=== PATIENT | female | born 1955 | race Caucasian/White ===

== ENCOUNTER 2024-08-16 22:02 | Inpatient (IN) | payer OTHER ==
[2024-08-16 23:04] LABS: Specific Gravity > 1.030 (1.005-1.030); Sqamous Epithelial <5 /HPF (None Seen); Urine Bacteria None Seen /HPF (<20); Urine Bilirubin 2+ (Negative); Urine Blood Negative (Negative); Urine Clarity Extremely Turbid (Clear); Urine Color Dark-Orange (Yellow); Urine Culture Reflex Order NOT NEEDED; Urine Glucose NEGATIVE (Negative); Urine Ketones 1+ (Negative); Urine Microscopic Reflex YN ORDER UMIC; Urine Mucus 2+ /HPF (None Seen); Urine Nitrite NEGATIVE (Negative); Urine Protein 1+ (Negative); Urine RBC <5 /HPF (None Seen); Urine Urobilinogen 3+ (Normal); Urine WBC <5 /HPF (<5)
[2024-08-16 23:08] LABS: PT Prothrombin Time 15.7 SECONDS (9.4-12.5); Protime INR 1.42
[2024-08-16 23:09] LABS: Absolute Basophils 0.1 K/uL (0-0.5); Absolute Monocytes 0.3 K/uL (0.1-1.3); Absolute Neutrophil 5.3 K/uL (1.8-8.0); Basophils % 0.8 % (0-1.3); Eosinophils % 0.5 % (0-4.4); Hematocrit 28.6 % (36.0-45.0); Hemoglobin 9.9 g/dL (12.0-15.0); Lymphocytes % 14.8 % (15.3-44.8); MCH 35.3 pg (27.0-35.0); MCHC 34.5 g/dL (32.0-36.0); MCV 102.1 fL (80-100); Neutrophils % 79.9 % (41.7-73.7); Nucleated Red Blood Cells % 0.1 % (0-0); Platelets 143 thou/uL (152-406); Red Cell Distribution Width 25.6 % (12.1-15.2)
[2024-08-16] MEDS ORDERED: NA CHLORIDE 0.9% 1,000 ML ONE ×2 (23:13→23:25)
[2024-08-16 23:14] LABS: Barbiturates NEGATIVE (NEGATIVE); Benzodiazepines NEGATIVE (NEGATIVE); Cocaine NEGATIVE (NEGATIVE); METHAMPHETAM NEGATIVE (NEGATIVE); Methadone NEGATIVE (NEGATIVE); Opiates NEGATIVE (NEGATIVE); Phencyclidine NEGATIVE (NEGATIVE); THC Cannibis POSITIVE (NEGATIVE)
[2024-08-16 23:22] LABS: Albumin/Globulin Ratio 0.4 (1.1-1.8); Bilirubin Direct 0.5 mg/dL (0-0.2); Bilirubin Indirect, Calculated 1.6 mg/dL (0.2-0.8); Bilirubin Total 2.1 mg/dL (0.2-1.0); Globulin 4.6 g/dL (2.3-3.5); Protein, Total 6.6 g/dL (6.4-8.2)
[2024-08-16] MEDS ORDERED: THIAMINE 200 MG/2 ML INJ ONE (23:24)
[2024-08-16] MEDS ORDERED: FOLIC ACID 5 MG/ML VIAL ONE (23:25)
[2024-08-16] MEDS ORDERED: MULTIVITAMINS 10 ML VIAL (INJ) IV ONE (23:30)
[2024-08-17] MEDS ORDERED: POTASSIUM 25 MEQ EFFERV TAB ONE (00:03)
[2024-08-17 00:26] LABS: Anisocytosis 2+; Blood Morphology Comment NOTED (NOT SEEN); Platelet Estimate ADEQ; White Blood Cell Scan OK (OK)
[2024-08-17 00:27] LABS: Ovalocytes SLIGHT; Poikilocytosis SLIGHT
--- NOTE | 2024-08-17 01:00 | ER ---
Nurse's Notes [facility] Name: Janae Davis Age: 68 yrs Sex: Female : 1955 Arrival Date: 08/16/2024 Time: 22:02 Bed 16 Private MD: Diagnosis: Altered mental status, unspecified;Hypokalemia Presentation: 08/16 22:00 Chief complaint: EMS states: patient's sister called EMS when they found patient on the kj2 bathroom floor after a welfare check by them. Patient was last seen by family four days ago. Alcohol abuse reported by family. Not sure how long she has been on the floor. Coronavirus screen: At this time, the client does not indicate any symptoms associated with coronavirus-19. Ebola Screen: No symptoms or risks identified at this time. Initial Sepsis Screen: Does the patient meet any 2 criteria? No. Patient's initial sepsis screen is negative. Does the patient have a suspected source of infection? No. Patient's initial sepsis screen is negative. Risk Assessment: Do you want to hurt yourself or someone else? Patient reports no desire to harm self or others. Onset of symptoms is unknown. 22:00 Method Of Arrival: EMS: [facility] 2 22:00 Acuity: VERN 3 kj2 Triage Assessment: 22:00 General: Appears unkempt, Behavior is calm, quiet, Smells of alcohol. Pain: Denies kj2 pain. EENT: No signs and/or symptoms were reported regarding the EENT system. Neuro: Level of Consciousness is awake, alert, Oriented to person, place. Cardiovascular: Patient's skin is warm and dry. Respiratory: Airway is patent Respiratory effort is even, unlabored. GI: No signs and/or symptoms were reported involving the gastrointestinal system. : Urine is cloudy, tea colored. Derm: Wound noted left side of buttocks Wound is skin tear. Historical: - Allergies: 23:03 No Known Allergies; kj2 - Immunization history:: Adult Immunizations unknown. - Infectious Disease History:: Denies. - Social history:: Patient uses alcohol, on a daily basis. Smoking status: Patient reports the use of cigarette tobacco products, smokes one pack cigarettes per day. Screenin:15 [facility] ED Fall Risk Assessment (Adult) History of falling in the last 3 months, kj2 including since admission Yes- single mechanical fall (1 pt) Confusion or Disorientation Yes (5 pts) Intoxicated or Sedated Yes (3 pts) Impaired Gait Yes (1 pt) Mobility Assist Device Used Yes (1 pt) Altered Elimination Yes (1 pt) Score/Fall Risk Level 3 or more points = High Risk Oriented to surroundings, Maintained a safe environment, Educated pt \T\ family on fall prevention, incl call for assistance when getting out of bed, Hourly rounding (assess needs \T\ fall precautionary measures) done, Utilized family, sitter, or virtual rotary lithographic press operator as indicated. Abuse screen: Denies threats or abuse. Denies injuries from another. Nutritional screening: No deficits noted. Tuberculosis screening: No symptoms or risk factors identified. 08/17 02:12 Clinical [place] Withdrawal Assessment for Alcohol, revised (CIWA-Ar): Orientation br2 and Clouding of Sensorium:. Assessment: 08/16 22:00 General: see triage . kj2 23:00 Reassessment: Patient appears in no apparent distress at this time. Patient and/or kj2 family updated on plan of care and expected duration. Pain level reassessed. Patient is alert, oriented x 3, equal unlabored respirations, skin warm/dry/pink. 23:57 Reassessment: PER FAMILY THE LAST TIME PT WENT INTO ALCOHOL WITHDRAWLS SHE BEGAN br2 SEIZING. PT IS STILL AMS. WYATT PAGE NOTIFIED. 08/17 00:00 Reassessment: Patient appears in no apparent distress at this time. Patient and/or kj2 family updated on plan of care and expected duration. Pain level reassessed. Patient is alert, oriented x 3, equal unlabored respirations, skin warm/dry/pink. 00:00 Reassessment: report given to INDU Crowell. kj2 Vital Signs: 08/16 22:00 BP 128 / 76; Pulse 82; Resp 20; Temp 97.5; Pulse Ox 100% on R/A; Weight 99.79 kg; kj2 Height 5 ft. 8 in. ; 22:00 BP 128 / 76; Pulse 82; Resp 18; Temp 97.5; Pulse Ox 100% on R/A; Weight 99.79 kg; kj2 Height 5 ft. 8 in. ; 23:00 BP 121 / 73; Pulse 82; Resp 18; Pulse Ox 100% on R/A; kj2 23:59 BP 135 / 70; Pulse 85; Resp 18; Pulse Ox 100% on R/A; kj2 08/17 01:02 BP 113 / 77; Pulse 83; Resp 18 S; Pulse Ox 100% on R/A; br2 01:30 BP 123 / 71; Pulse 78; Resp 18 S; Pulse Ox 100% on R/A; br2 02:12 BP 115 / 69; Pulse 76; Resp 16 S; Pulse Ox 100% on R/A; br2 08/16 22:00 Body Mass Index 33.45 (99.79 kg, 172.72 cm) kj2 ED Course: 08/16 22:00 Arm band placed on Patient placed in an exam room, on a stretcher. kj2 22:00 Patient has correct armband on for positive identification. Bed in low position. Call kj2 light in reach. Adult w/ patient. Provided Education on: call light, fall precautions. 22:16 Patient arrived in ED. ec2 22:17 Wyatt Sanchez PA is PHCP. cp 22:17 Dom Wheat MD is Attending Physician. cp 22:42 Basic Metabolic Panel Sent. ha1 22:42 CBC with Diff Sent. ha1 22:42 LFT's Sent. ha1 22:42 Magnesium Sent. ha1 22:42 NT PRO-BNP Sent. ha1 22:42 PT-INR Sent. ha1 22:42 Troponin HS Sent. ha1 22:42 AMMONIA Sent. ha1 22:42 Maintain EMS IV. Dressing intact. Good blood return noted. Site clean \T\ dry. Gauge \T\ olmos 1 site: 18 GAUGE LAC. Flushed with 10 mL NS. 22:43 Straight cath inserted, using sterile technique, 14 Fr. Specimen obtained. Patient ha1 tolerated well. 22:53 Katherine Blake, RN is Primary Nurse. kj2 22:59 XRAY Chest (1 view) In Process Unspecified. EDMS 23:01 Triage completed. kj2 23:02 EKG completed in triage. Results shown to . kj2 23:57 Chest Abdomen Pelvis W Cont In Process Unspecified. EDMS 23:57 Head C Spine Mpr Wo Con In Process Unspecified. EDMS 08/17 00:12 Report received from RECEIVED REPORT FROM INDU HUNTER. br2 00:58 Angelo Franz MD is Hospitalizing Provider. cp 01:03 Served as a assurance officer during rectal exam. br2 01:08 Femur Left In Process Unspecified. EDMS 02:30 Patient admitted, IV remains in place. br2 Administered Medications: 08/16 22:42 CANCELLED (Physician Discretion): ns 0.9% 500 ml IV at bolus once cp 23:17 Drug: NS 0.9% IV 1000 ml IV at 999 ml/hr Per protocol Route: IV; Rate: 999 ml/hr; Site: kj left antecubital; 08/17 01:29 Follow up: IV Status: Completed infusion; IV Intake: 1000ml br2 08/16 23:42 Drug: Banana Bag - (Multivitamin IV 1 amp, NS 0.9% IV 1000 ml, Thiamine IV 100 mg, kj2 foLIC Acid IVPB 1 mg) IV at 150 ml/hr once Route: IV; Rate: 150 ml/hr; Site: left antecubital; 08/17 02:30 Follow up: Response: No adverse reaction; IV Status: Infusion continued upon admission br2 00:05 Drug: Potassium PO Effervescent Tablet 50 mEq PO once; dissolve in 4 ounces of water or kj2 juice Route: PO; 01:01 Follow up: Response: No adverse reaction br2 Medication: 08/16 22:30 VIS not applicable for this client. kj2 Intake: 08/17 01:29 IV: 1000ml; Total: 1000ml. br2 Outcome: 01:00 Decision to Hospitalize by Provider. cp 02:30 Condition: improved br2 02:30 Admitted to Med/surg accompanied by tech, br2 02:59 Patient left the ED. br2 Signatures: Dispatcher [employer] EDNJ Wyatt Sanchez PA PA cp Kelin Morin, RN RN ha1 Dom Wheat MD MD ec2 Mervat Flower RN RN br2 Katherine Blake RN RN kj2
--- NOTE | 2024-08-17 01:01 | EDPHYS ---
Physician Documentation [facility] Name: Janae Davis Age: 68 yrs Sex: Female : 1955 Arrival Date: 08/16/2024 Time: 22:02 Bed 16 Private MD: ED Physician Dom Wheat HPI: 08/16 22:40 This 68 yrs old Female presents to ER via Unassigned with complaints of Altered Mental cp Status. 22:40 The patient presents with confusion. Onset: The symptoms/episode began/occurred at an cp unknown time. 22:40 Patient's baseline: Neuro: alert and fully oriented, Motor: no deficits, Ambulation: cp walks without assistance, Speech: normal. Patient is a 68-year-old female who was brought to the emergency department via EMS for reported altered mental status. Patient was found by family on the floor in the bathroom after an unknown period of time. Patient reportedly was last known to be at baseline approximately 3 to 4 days ago as patient lives by herself. EMS reports patient had has a history of alcohol abuse in the past. Patient does not have any specific complaints and is currently alert to name only. Historical: - Allergies: 23:03 No Known Allergies; kj2 - Immunization history:: Adult Immunizations unknown. - Infectious Disease History:: Denies. - Social history:: Patient uses alcohol, on a daily basis. Smoking status: Patient reports the use of cigarette tobacco products, smokes one pack cigarettes per day. ROS: 22:45 Neuro: Positive for altered mental status, cp 22:45 Constitutional: HX per hpi cp Exam: 22:50 Constitutional: The patient appears in no acute distress, alert, awake, cp non-diaphoretic, non-toxic, well developed, well nourished, unkempt, 22:50 Head/Face: Normocephalic, atraumatic. cp 22:50 Eyes: Periorbital structures: appear normal, Pupils: constricted, bilaterally, Extraocular movements: intact throughout, Conjunctiva: normal, no exudate, no injection, Sclera: no appreciated abnormality, Lids and lashes: appear normal, bilaterally, 22:50 ENT: External ear(s): are unremarkable, Nose: is normal, Mouth: Lips: dry, Oral mucosa: dry, Posterior pharynx: Airway: no evidence of obstruction, patent, 22:50 Neck: C-spine: vertebral tenderness, is not appreciated, crepitus, is not appreciated, 22:50 Chest/axilla: Inspection: normal, Palpation: is normal, no crepitus, no tenderness, 22:50 Cardiovascular: Rate: normal, Rhythm: regular, Edema: is not appreciated, JVD: is not appreciated, 22:50 Respiratory: the patient does not display signs of respiratory distress, Respirations: normal, no use of accessory muscles, no retractions, labored breathing, is not present, Breath sounds: are clear throughout, no decreased breath sounds, no stridor, no wheezing, 22:50 Abdomen/GI: Inspection: abdomen appears normal, Palpation: abdomen is soft and non-tender, in all quadrants, Rectal exam: Stool: brown, 22:50 Back: CVA tenderness, is absent, vertebral tenderness, is not appreciated, 22:50 Skin: no rash present. abrasion noted to area below left buttock. 22:50 Neuro: Orientation: to person, Mentation: responsive to voice confused, Motor: moves all fours, no focal deficits, 22:55 ECG was reviewed by the Attending Physician. cp Vital Signs: 22:00 BP 128 / 76; Pulse 82; Resp 20; Temp 97.5; Pulse Ox 100% on R/A; Weight 99.79 kg; kj2 Height 5 ft. 8 in. ; 22:00 BP 128 / 76; Pulse 82; Resp 18; Temp 97.5; Pulse Ox 100% on R/A; Weight 99.79 kg; kj2 Height 5 ft. 8 in. ; 23:00 BP 121 / 73; Pulse 82; Resp 18; Pulse Ox 100% on R/A; kj2 23:59 BP 135 / 70; Pulse 85; Resp 18; Pulse Ox 100% on R/A; kj2 08/17 01:02 BP 113 / 77; Pulse 83; Resp 18 S; Pulse Ox 100% on R/A; br2 01:30 BP 123 / 71; Pulse 78; Resp 18 S; Pulse Ox 100% on R/A; br2 02:12 BP 115 / 69; Pulse 76; Resp 16 S; Pulse Ox 100% on R/A; br2 08/16 22:00 Body Mass Index 33.45 (99.79 kg, 172.72 cm) kj2 MDM: 01:00 Patient medically screened. cp 01:00 Data reviewed: vital signs, nurses notes, lab test result(s), EKG, radiologic studies, cp CT scan, plain films, I have discussed the patient's presentation/case with the attending Emergency Department Physician; and as a result, I will admit patient. 01:00 Management of patient was discussed with the following: Hospitalist: DR Franz will cp admit after discussion. Independent interpretation of the following test(s) in the Emergency Department EKG: See my EKG interpretation above. Response to treatment: the patient's symptoms have mildly improved after treatment. 08/16 22:18 Order name: Basic Metabolic Panel; Complete Time: 23:31 cp 08/16 23:32 Interpretation: Normal except: K 3.0; CL 97; CRE 0.47. cp 08/16 22:18 Order name: CBC with Diff; Complete Time: 01:00 cp 08/16 23:32 Interpretation: Normal except: RBC 2.80; HGB 9.9; HCT 28.6; MCV 102.1; MCH 35.3; PLT cp 143; RDW 25.6; NAM% 79.9; LYM% 14.8. 08/16 22:18 Order name: LFT's; Complete Time: 23:31 cp 08/16 23:32 Interpretation: Normal except: AST 61; BILIT 2.1; BILID 0.5; IBILI, CALC 1.6; ALB 2.0; cp GLOB 4.6; A/G 0.4. 08/16 22:18 Order name: Magnesium; Complete Time: 23:31 cp 08/16 22:18 Order name: NT PRO-BNP; Complete Time: 23:31 cp 08/16 23:33 Interpretation: Abnormal: NT PRO-BNP 1143. cp 08/16 22:18 Order name: PT-INR; Complete Time: 23:31 cp 08/16 22:18 Order name: Troponin HS; Complete Time: 23:31 cp 08/16 22:18 Order name: AMMONIA; Complete Time: 23:31 cp 08/16 22:18 Order name: ETOH Level; Complete Time: 23:31 cp 08/16 23:33 Interpretation: Reviewed. cp 08/16 22:18 Order name: Urinalysis w/ reflexes; Complete Time: 23:31 cp 08/16 23:33 Interpretation: Normal except: [facility] Extremely Turbid; Urine SG > 1.030; UBILI 2+; UKET cp 1+; UPROT 1+; UUROB 3+. 08/16 22:18 Order name: UDS; Complete Time: 23:31 cp 08/16 23:33 Interpretation: Normal except: THC POSITIVE. cp 08/16 22:20 Order name: CK; Complete Time: 23:31 cp 08/16 23:33 Interpretation: Abnormal: CPK 649. cp 08/17 00:27 Order name: CBC Smear Scan; Complete Time: 01:00 EDMS 08/17 01:08 Order name: Urinalysis w/ reflexes EDMS 08/16 22:18 Order name: XRAY Chest (1 view) cp 08/16 23:45 Order name: Chest Abdomen Pelvis W Cont EDMS 08/16 23:48 Order name: Head C Spine Mpr Wo Con EDMS 08/17 01:05 Order name: Femur Left EDMS 08/16 22:18 Order name: EKG; Complete Time: 22:19 cp 08/16 22:18 Order name: Cardiac monitoring; Complete Time: 22:42 cp 08/16 22:18 Order name: EKG - Nurse/Tech; Complete Time: 22:42 cp 08/16 22:18 Order name: IV Saline Lock; Complete Time: 22:41 cp 08/16 22:18 Order name: Labs collected and sent; Complete Time: 22:42 cp 08/16 22:18 Order name: O2 Per Protocol; Complete Time: 22:42 cp 08/16 22:18 Order name: O2 Sat Monitoring; Complete Time: 22:42 cp EC/05 22:55 Rate is 83 beats/min. Rhythm is regular. IN interval is normal. QRS interval is normal. cp QT interval is prolonged at 456 msec. Interpreted by me. Reviewed by me. Administered Medications: 22:42 CANCELLED (Physician Discretion): ns 0.9% 500 ml IV at bolus once cp 23:17 Drug: NS 0.9% IV 1000 ml IV at 999 ml/hr Per protocol Route: IV; Rate: 999 ml/hr; Site: [facility] left antecubital; 08/17 01:29 Follow up: IV Status: Completed infusion; IV Intake: 1000ml br2 08/16 23:42 Drug: Banana Bag - (Multivitamin IV 1 amp, NS 0.9% IV 1000 ml, Thiamine IV 100 mg, kj2 foLIC Acid IVPB 1 mg) IV at 150 ml/hr once Route: IV; Rate: 150 ml/hr; Site: left antecubital; 08/17 02:30 Follow up: Response: No adverse reaction; IV Status: Infusion continued upon admission br2 00:05 Drug: Potassium PO Effervescent Tablet 50 mEq PO once; dissolve in 4 ounces of water or kj2 juice Route: PO; 01:01 Follow up: Response: No adverse reaction br2 Disposition Summary: 08/17/24 01:00 Hospitalization Ordered Notes: Hospitalization Status: Observation cp Provider: Angelo Franz cp Location: Telemetry/MedSurg (observation) cp Condition: Stable cp Problem: new cp Symptoms: have improved cp Bed/Room Type: Standard cp Room Assignment: 230(08/17/24 01:39) cg Diagnosis - Altered mental status, unspecified cp - Hypokalemia cp Forms: - Medication Reconciliation Form cp - SBAR form cp - Leadership Thank You Letter cp Addendum: 08/20/2024 09:46 I was immediately available for consultation during this patient's visit. I did not e c2 personally see the patient or discuss the patient with the JOSÉ MIGUEL. . Signatures: Dispatcher [employer] EDMS Missael Sanchez PA PA cp Garcia, Cindy, RN RN Dom Dorsey MD MD ec2 Mervat Flower RN RN br2 Katherine Blake RN RN kj2 Corrections: (The following items were deleted from the chart) 08/16 22:19 22:19 BASIC METABOLIC PANEL+C.LAB.BRZ ordered. EDMS EDMS 22:19 22:19 CBC+H.LAB.BRZ ordered. EDMS EDMS 22:19 22:19 HEPATIC FUNCTION+C.LAB.BRZ ordered. EDMS EDMS 22:19 22:19 MAGNESIUM+C.LAB.BRZ ordered. EDMS EDMS 22:19 22:19 PROBNP+C.LAB.BRZ ordered. EDMS EDMS 22:19 22:19 PROTIME (+INR)+COAG.LAB.BRZ ordered. EDMS EDMS 22:19 22:19 Troponin High Sensitivity+C.LAB.BRZ ordered. EDMS EDMS 22: 22:19 AMMONIA+C.LAB.BRZ ordered. EDMS EDMS 22: 22:19 ETHANOL+C.LAB.BRZ ordered. EDMS EDMS : 22:19 Urinalysis+U.LAB.BRZ ordered. EDMS EDMS 22: 22:19 URINE DRUG SCREEN+UC.LAB.BRZ ordered. EDMS EDMS 22:42 22:20 NS 0.9% IV 500 ml IV at bolus once ordered. cp cp 23:48 22:19 Head C Spine CAP W Con+CT.RAD.BRZ ordered. EDMS EDMS 08/17 00:12 00:12 Femur Right+RAD.RAD.BRZ ordered. EDMS EDMS 01:39 01:00 cp cg
[2024-08-17] MEDS ORDERED: ACETAMINOPHEN 325 MG TABLET PO PRN (01:03)
[2024-08-17] MEDS ORDERED: ONDANSETRON 4 MG/2 ML VIAL IV PRN (01:03)
--- NOTE | 2024-08-17 01:03 | P.HP ---
Certification for Inpatient Patient admitted to: Inpatient With expected LOS: >2 Midnights Practitioner: I am a practitioner with admitting privileges, knowledge of patient current condition, hospital course, and medical plan of care. Services: Services provided to patient in accordance with Admission requirements found in Title 42 Section 412.3 of the Code of Federal Regulations Patient History Date of Service: 08/17/24 Reason for admission: AMS History of Present Illness: 68 yrs old Female with no significant past medical history other than alcohol abuse who was brought to ER with altered mental status. Patient is altered and confused at the time of admission. Hence most of the history is obtained from the chart review and also talking to the ER physician and family member at the bedside. Patient was found down in the bathroom after a welfare check. Patient lives alone. She has a history of alcohol abuse . Patient denies any chest pain or shortness of breath. No fever or chills. Denies any trauma. No history of head injury. Patient was assessed in the ER and was admitted for further management of rhabdomyolysis and altered mental status . Allergies No Known Allergies Allergy (Unverified 08/17/24 01:12) Home medications list reviewed: Yes - Past Medical/Surgical History Past Medical History: Unable to obtain Past Surgical History: Unable to obtain - Family History Family History: Reviewed- Non-Contributory - Social History Smoking Status: Former smoker Review of Systems is unable to be obtained Physical Examination - Vital Signs Temperature: 97.2 F Blood Pressure: 120/72 Pulse: 78 Respirations: 18 Pulse Ox (%): 94 - Physical Exam General: Alert, Oriented x1, Mild distress, Confused HEENT: Atraumatic, Normocephalic Neck: Supple, No Thyromegaly Respiratory: Clear to auscultation bilaterally, Normal air movement Cardiovascular: Regular rate/rhythm, Normal S1 S2 Capillary refill: <2 Seconds Gastrointestinal: Soft and benign, W/out hepatosplenomegaly Musculoskeletal: No clubbing, No swelling Integumentary: No rashes, No breakdown Neurological: Other (Alert, confused, moves all limbs) Lymphatics: No axilla or inguinal lymphadenopathy - Studies Laboratory Data (last 24 hrs) 08/16/24 08/16/24 08/16/24 22:35 22:35 22:35 WBC 6.70 Hgb 9.9 L Hct 28.6 L Plt Count 143 L PT 15.7 H INR 1.42 Sodium 136 Potassium 3.0 L BUN 11 Creatinine 0.47 L Glucose 102 Magnesium 2.0 Total Bilirubin 2.1 H AST 61 H ALT 22 Alkaline Phosphatase 85 Assessment and Plan - Plan Acute encephalopathy metabolic Monitor closely on telemetry Head CT is negative for any acute changes Denies any trauma Monitor neuro vital signs Alcohol abuse Monitor alcohol levels Ammonia level is normal CT abdomen pelvis findings noted Possible cirrhosis. Advised cessation Will start on banana bag DT precautions Hypokalemia Electrolytes monitor and replace accordingly Rhabdomyolysis Started on IV hydration Monitor CK levels Monitor renal parameters and electrolytes Anemia of chronic disease Monitor H&H closely No overt bleeding at this time Substance abuse UDS noted Advise cessation GI/DVT prophylaxis Advanced directive full code Discharge Plan: Home Plan to discharge in: 48 Hours - Advance Directives Does patient have a Living Will: No Does patient have a Durable POA for Healthcare: No - Code Status/Comfort Care Code Status: Full Code Time Spent Managing Pts Care (In Minutes): 48
[2024-08-17] MEDS ORDERED: HYDROCODONE/APAP 5/325 MG TAB PO PRN (01:06)
[2024-08-17] MEDS ORDERED: MORPHINE 2 MG/ML SYR IV PRN (01:06)
--- NOTE | 2024-08-17 01:12 | RAD REPORT ---
EXAM: XR Chest, 1 View CLINICAL HISTORY: Altered mental status. TECHNIQUE: Frontal view of the chest. COMPARISON: No relevant prior studies available. FINDINGS: Lungs: Unremarkable. No consolidation. Pleural space: Unremarkable. No pneumothorax. Heart: Unremarkable. No cardiomegaly. Mediastinum: Unremarkable. Normal mediastinal contour. Bones/joints: Multilevel spondylosis. No acute fracture. IMPRESSION: No acute disease. Electronically signed by: Cate Celeste MD 08/16/2024 11:56 PM CDT RP Due to temporary technical issues with the PACS/[employer] reporting system, reports are being nahum d by the in-house radiologist without review as a courtesy to ensure prompt reporting the interpreting radiologist is fully responsible for the content of the report. Transcribed Date/Time: 08/17/2024 1:11 AM
--- NOTE | 2024-08-17 01:53 | RAD REPORT ---
EXAMINATION: CT CHEST ABDOMEN PELVIS WITH IV CONTRAST INDICATION: Female, 68 years old, AMS COMPARISON(S): Concurrent CT cervical spine TECHNIQUE: CT acquisition of the chest, abdomen and pelvis following the administration of IV contras t. Coronal and sagittal reformatted images provided. This exam was performed according to departmental dose-optimization program which includes automated exposure control, adjustment of the m A and/or kV according to patient size, and/or use of iterative reconstruction technique. FINDINGS: SUPPORTIVE DEVICES: None. LOWER NECK: Unremarkable. Beam hardening from arms down positioning results in decreased [id number] and limits interpretat ion. CHEST: Mediastinum/darci: Aortic atherosclerosis without aneurysm. The pulmonary vasculature is unremarkable. No evident thoracic adenopathy. Unremarkable esophagus. Heart: Normal size. No pericardial thickening or effusion. Moderate coronary artery calcifications. Lungs: No pulmonary consolidation. No suspicious pulmonary nodule. Central airways are clear. Pleural Space: Trace layering left pleural effusion. ABDOMEN AND PELVIS: Liver: Diffuse hypoenhancement with nodular contour. No focal lesion identified. Gallbladder and bile ducts: Small layering density at the gallbladder neck. No evidence of pericholec ystic fluid or ductal dilation. Pancreas: Diffuse atrophy. Spleen: Mildly enlarged. Adrenal glands: Normal. Kidneys and ureters: No acute findings. Simple superior left renal cyst. Bladder: Nondistended without evident abnormality. Reproductive organs: Unremarkable. GI tract: The distal esophagus, stomach, duodenum and small bowel are unremarkable. No evidence of ap pendicitis. Mild wall prominence of the decompressed ascending colon and rectum. Colonic diverticulosis without diverticulitis. Peritoneum: Small-moderate volume of ascites within the upper quadrants and pelvis. Mild nonfocal mes enteric edema. No fluid collection or free air. Vessels: Mild atherosclerosis. Paraesophageal varices. Lymph nodes: No evident adenopathy. Abdominal wall: No significant hernia. MUSCULOSKELETAL: Age-indeterminate superior endplate deformity of L3 with less than 25% vertebral bod y height loss. Otherwise osseous structures are intact. Degenerative change of the shoulders, spine, and pelvis. IMPRESSION: 1. Cirrhotic hepatic morphology with sequela of portal hypertension including paraesophageal varice s, splenomegaly, and ascites. 2. Focal wall prominence of the cecum and rectum may be due to nondistention, hepatic congestion, o r colitis/proctitis. 3. Suspected small amount of layering gallstones without other CT findings of cholecystitis. Correl ate with hepatic enzymes and right upper quadrant ultrasound if there is sufficient clinical concern for acute cholecystitis. 4. Age-indeterminate mild L3 wedge compression deformity, correlate for point tenderness. 5. Additional chronic and incidental findings above. Electronically signed by: Mil Urban MD 08/17/2024 12:42 AM CDT RP Due to temporary technical issues with the PACS/[employer] reporting system, reports are being nahum d by the in-house radiologist without review as a courtesy to ensure prompt reporting the interpreting radiologist is fully responsible for the content of the report. Transcribed Date/Time: 08/17/2024 1:53 AM
--- NOTE | 2024-08-17 01:53 | RAD REPORT ---
EXAMINATION: CT HEAD AND CERVICAL SPINE WITHOUT CONTRAST INDICATION: Female, 68 years old, MENTAL STATUS CHANGE COMPARISON(S): CT chest performed concurrently TECHNIQUE: CT acquisition of the head without contrast. CT acquisition of the cervical spine without contrast. Coronal and sagittal reformats provided. This exam was performed according to departmental dose-optimization program which includes automated exposure control, adjustment of the m A and/or kV according to patient size, and/or use of iterative reconstruction technique. FINDINGS: SUPPORT DEVICES: None. HEAD: Brain: No evidence of intracranial hemorrhage, mass effect, or midline shift. Moderate cerebral white matter hypodensity and parenchymal volume loss most likely due to chronic microvascular ischemic changes. CSF Spaces: The ventricles and sulci are mildly enlarged consistent with mild global parenchymal volu me loss. Skull: The calvarium is intact. Soft tissue: No evidence of scalp or soft tissue injury. Other: The imaged facial bones are intact. Prior lens surgery, otherwise unremarkable orbits. Mild pa ranasal sinus disease is present. CERVICAL SPINE: Morphology: Normal vertebral body heights. No identified fracture. Alignment: No traumatic listhesis. Craniocervical Junction: Intact with degenerative change. Disc Levels: Moderate multilevel degenerative changes, most pronounced at C5-C6. Other: No acute finding of the neck soft tissues or imaged upper chest. Carotid atherosclerosis. IMPRESSION: 1. No acute intracranial abnormality. 2. No acute cervical osseous abnormality. Electronically signed by: Mil Urban MD 08/17/2024 12:44 AM CDT Due to temporary technical issues with the PACS/locr reporting system, reports are being nahum d by the in-house radiologist without review as a courtesy to ensure prompt reporting the interpreting radiologist is fully responsible for the content of the report. Transcribed Date/Time: 08/17/2024 1:53 AM
--- NOTE | 2024-08-17 03:21 | RAD REPORT ---
XR FEMUR 2 VIEWS LEFT INDICATION: Pain COMPARISON: None TECHNIQUE: 4 views of the left femur FINDINGS: BONES: Status post left total knee arthroplasty. No evidence of hardware loosening or disruption. No acute fracture or malalignment. No suspicious sclerotic or lytic lesion. SOFT TISSUE: Unremarkable. OTHER: Contrast was in visualized urinary bladder. Arterial atherosclerotic calcification in left upp er thigh. IMPRESSION: No acute bony abnormality. Electronically signed by: Ksenia Clark MD 08/17/2024 02:09 AM CDT Transcribed Date/Time: 08/17/2024 3:21 AM
[2024-08-17] MEDS ORDERED: LORazepam 2 MG/ML VIAL IV PRN (04:59)
[2024-08-17] MEDS: FOLIC ACID 1 MG, MULTIVITAMINS INJ 10 ML, THIAMINE HCL 100 MG in NA CHLORIDE 0.9% 1,000 ML IV SCH (09:30)
--- NOTE | 2024-08-17 13:56 | P.PN ---
Date of Service: 08/17/24 Patient is awake but somehow confused. She denies any complaint. I met patient's sister in the room. Toxicology screen positive for THC, alcohol level less than 10. Patient sister denies any report of witnessed seizures but did say patient did not have access to alcohol for a few days. Diagnosis: Metabolic encephalopathy-polysubstance abuse not ruled out. Possible alcohol withdrawal seizure. Alcohol induced macrocytic anemia Thrombocytopenia Hypokalemia She is currently more awake. Neurochecks Diet as tolerated Monitor for alcohol withdrawal symptoms. CIWA as needed. Correct electrolytes as needed.
[2024-08-18 04:36] LABS: Absolute Lymphocytes (CBC) 1.2 K/uL (0.7-4.9); Absolute Monocytes 0.3 K/uL (0.1-1.3); Absolute Neutrophil 1.9 K/uL (1.8-8.0); Basophils % 0.6 % (0-1.3); Eosinophils % 0.8 % (0-4.4); Hematocrit 21.2 % (36.0-45.0); Hemoglobin 7.1 g/dL (12.0-15.0); Lymphocytes % 34.6 % (15.3-44.8); MCH 34.9 pg (27.0-35.0); MCHC 33.5 g/dL (32.0-36.0); MCV 104.1 fL (80-100); MPV 7.7 fL (7.6-11.3); Nucleated Red Blood Cells % 0.1 % (0-0); Platelets 97 thou/uL (152-406); RBC Red Blood Cell Count 2.03 M/uL (3.86-4.86)
[2024-08-18 04:41] LABS: Red Cell Distribution Width 25.5 % (12.1-15.2)
[2024-08-18 05:05] LABS: Albumin 1.5 g/dL (3.4-5.0); Albumin/Globulin Ratio 0.5 (1.1-1.8); Anion Gap 8.5 mEq/L (5.0-15.0); Bilirubin Total 0.9 mg/dL (0.2-1.0); Globulin 3.1 g/dL (2.3-3.5); Protein, Total 4.6 g/dL (6.4-8.2)
[2024-08-18 05:08] LABS: Potassium 2.5 mEq/L (3.5-5.1)
[2024-08-18] MEDS: POTASSIUM 25 MEQ EFFERV TAB PO ONE ×3 (06:01→20:46)
[2024-08-18] MEDS ORDERED: POTASSIUM PHOS IN 0.9 % NACL 15 MMOL/250 ML BAG IV ONE (06:01)
[2024-08-18] MEDS: NA CHLORIDE 0.9% 1,000 ML IV SCH (08:49)
[2024-08-18] MEDS: POTASSIUM PHOS IN 0.9 % NACL 15 MMOL/250 ML BAG IV SCH (10:28)
--- NOTE | 2024-08-18 11:56 | EKG ---
Test Date: 2024-08-16 Test Time: 22:48:15 Assistant Women'S Basketball Coach: MEASUREMENT RESULTS: Intervals: Rate: 83 NH: 158 QRSD: 78 QT: 456 QTc: 535 [place]: P: 73 NH: 158 QRS: 88 T: 92 INTERPRETIVE STATEMENTS: Normal sinus rhythm Septal infarct, age undetermined ST & T wave abnormality, consider anterior ischemia Prolonged QT Abnormal ECG Compared to ECG 04/29/1993 10:40:00 Myocardial infarct finding now present ST (T wave) deviation now present Possible ischemia now present Prolonged QT interval now present Electronically Signed On 08-18-24 11:52:41 CDT by Georgi Moore
--- NOTE | 2024-08-18 11:56 | EKG ---
Test Date: 2024-08-17 Test Time: 01:22:29 Chop Saw Operator: BARBARA MEASUREMENT RESULTS: Intervals: Rate: 79 WY: 156 QRSD: 74 QT: 466 QTc: 534 [place]: P: 76 W[place]: 156 QRS: 71 T: 65 INTERPRETIVE STATEMENTS: Normal sinus rhythm Nonspecific ST abnormality Prolonged QT Abnormal ECG Compared to ECG 08/16/2024 22:48:15 Myocardial infarct finding no longer present Possible ischemia no longer present ST (T wave) deviation still present Electronically Signed On 08-18-24 11:52:33 CDT by Georgi Moore
--- NOTE | 2024-08-18 13:37 | P.PN ---
Subjective Date of Service: 08/18/24 Chief Complaint: AMS Patient is awake and interactive. Patient blood pressure noted to be low today. No recorded fever She is tolerating diet. Physical Examination - Vital Signs Temperature: 97.9 F Blood Pressure: 85/56 Pulse: 80 Respirations: 24 Pulse Ox (%): 98 Assessment And Plan - Plan Physical examination General: Alert and oriented x3, NAD, HEENT: Conjunctiva not pale, anicteric sclera Neck: Supple, no elevated JVD Heart: Heart sounds 1 and 2 normal, regular rhythm, normal rate, no pedal edema Lungs: Clear to auscultation bilaterally, adequate breath sounds bilaterally, no rhonchi or crackles. Abdomen: Soft, nondistended, nontender, normal bowel sounds. Extremities: No tenderness, no deformity Skin: Normal skin turgor, no rash, no nodules or ulcers. Neuro: No focal motor deficit. Normal speech. Psychiatry: Normal mood, no agitation. Assessment and plan Acute encephalopathy metabolic Head CT is negative for any acute changes Alcohol withdrawal seizures suspected Patient is now awake and interactive. Monitor for seizures Ativan as needed Alcohol abuse Liver cirrhosis Marijuana abuse Ammonia level is normal CT abdomen pelvis findings noted Alcohol and substance abuse cessation advised. Multivitamins, folic acid and thiamine supplementation DT precautions CIWA. Hypokalemia Replace potassium as needed. Rhabdomyolysis Moderate CK elevation CK level trended down. Continue IV hydration. Anemia of chronic disease Drop in hemoglobin noted. This is most likely dilutional. No reported GI bleed. Transfuse as needed for hemoglobin less than 7. CT abdomen pelvis suggest presence of portal hypertension with paraesophageal varices. GI consult. Monitor for active bleeding. Acquired thrombocytopenia Related to liver cirrhosis and splenomegaly. Monitor for active bleeding Monitor CBC Avoid anticoagulation Hypotension Likely related to liver cirrhosis. IV NS bolus today. Start midodrine. Monitor BP closely. DVT prophylaxis: SCD Advanced directive full code
[2024-08-18] MEDS ORDERED: FLU (Fluarix Triv) TS24-25(6MOS UP)/PF 45 MCG/0.5 ML Syringe IM ONE (14:00)
[2024-08-18] MEDS ORDERED: PNEUMOCOCCAL VACCINE 0.5 ML IMVAC ONE (18:00)
[2024-08-18] MEDS: POTASSIUM CL SA 10 MEQ TAB PO ONE (20:46)
[2024-08-18] MEDS ORDERED: POTASSIUM CL SA 10 MEQ TAB PO ONE (21:00)
[2024-08-19 04:28] LABS: Absolute Lymphocytes (CBC) 1.2 K/uL (0.7-4.9); Absolute Monocytes 0.4 K/uL (0.1-1.3); Absolute Neutrophil 1.6 K/uL (1.8-8.0); Basophils % 1.2 % (0-1.3); Eosinophils % 1.3 % (0-4.4); Hematocrit 20.9 % (36.0-45.0); Hemoglobin 7.1 g/dL (12.0-15.0); Lymphocytes % 37.4 % (15.3-44.8); MCH 35.1 pg (27.0-35.0); MCHC 33.8 g/dL (32.0-36.0); MCV 103.9 fL (80-100); MPV 7.6 fL (7.6-11.3); Monocytes % 10.8 % (3.3-12.3); Neutrophils % 49.3 % (41.7-73.7); Nucleated Red Blood Cells % 0.4 % (0-0); Platelets 108 thou/uL (152-406); RBC Red Blood Cell Count 2.01 M/uL (3.86-4.86)
[2024-08-19 04:31] LABS: Red Cell Distribution Width 25.2 % (12.1-15.2)
[2024-08-19 04:41] LABS: Albumin 1.5 g/dL (3.4-5.0); Albumin/Globulin Ratio 0.5 (1.1-1.8); Anion Gap 9.2 mEq/L (5.0-15.0); Bilirubin Total 0.7 mg/dL (0.2-1.0); Globulin 3.1 g/dL (2.3-3.5); Magnesium 1.4 mg/dL (1.6-2.4); Phosphorus 2.4 mg/dL (2.5-4.9); Potassium 3.2 mEq/L (3.5-5.1); Protein, Total 4.6 g/dL (6.4-8.2)
[2024-08-19] MEDS: Magnesium Sulfate 2gm IVPB 2 G/50 ML BAG IV ONE (06:08)
[2024-08-19] MEDS ORDERED: SODIUM CHLORIDE 0.9% 10ML INJ IV PRN (06:34)
--- NOTE | 2024-08-19 06:54 | P.PN ---
Date of Service: 08/19/24 Subjective: Denies any new / worsening problems denies any abdominal pains. No obvious bleeding. Denies black/tarry stools urine is dark in color denies any history of reflux ROS: 10 point ROS as noted above, otherwise negative Physical Exam: GEN: Alert, oriented x2, NAD HEENT: Normal conjunctiva, sclera anicteric CV: Regular rate and rhythm, no edema Pulm: Nonlabored respirations on room air, clear bilaterally ABD: soft, nontender, nondistended Integumentary: No rashes Neuro: Normal speech, normal affect Problem List: Acute metabolic encephalopathy Alcohol abuse Liver cirrhosis Marijuana use Anemia Rhabdomyolysis, resolved Hypokalemia, improved Acquired thrombocytopenia Hypotension Acute metabolic encephalopathy Alcohol abuse Liver cirrhosis Marijuana use On admission, presents with confusion, altered mentation. Found down in the bathroom after a welfare check. CT head (08/16): negative for any acute findings CT abdomen (08/17): cirrhotic hepatic morpholgy with sequela of portal hypertension includnig paraesophgageal varices, splenomegaly, and ascites. Alcohol withdrawal seizures suspected Monitor for seizures; Ativan as needed Alcohol and substance cessation advised. continue Multivitamins, folic acid and thiamine CIWA protocol Patient is now awake and interactive. seems slightly confused, but improved LFTs improved Anemia unknown etiology, unknown chronicity - pt has not been here before / no prior records and rarely sees a doctor. Does report "a while ago needing blood transfusion" hgb 9.1 -> 7.1 (08/18) no obvious bleeding noted CT abdomen (08/17): cirrhotic hepatic morpholgy with sequela of portal hypertension including paraesophgageal varices, splenomegaly, and ascites. Focal wall prominence of the cecum and rectum may be due to nondistention, hepatic congestion, or colitis/proctitis 1 uPRBC ordered. recheck H&H post transfusion denies any abdominal pains. No obvious bleeding. Denies black/tarry stools iron studies: iron 28, tsat% 31% CLD for now start PPI Monitor for active bleeding. Rhabdomyolysis, resolved Hypokalemia, improved CK elevated 649 on admission CK level trended down. resolved 08/19. Continue IV hydration. Replace potassium as needed. improving Acquired thrombocytopenia Related to liver cirrhosis and splenomegaly. Monitor for active bleeding Monitor CBC Avoid anticoagulation Hypotension continue IV fluids Monitor BP closely. VTE: SCD Code: Full Dispo: SNF - pending choice/approval pending Hgb stable, BP improves, mentation improves Time Spent Managing Pts Care (In Minutes): 51
[2024-08-19] MEDS ORDERED: NA CHLORIDE 0.9% 250 ML IV SCH ×2 (07:00→08:00)
[2024-08-19 07:24] VITALS: BMI 25.4
[2024-08-19 07:42] LABS: Percent Reticulocyte Count 1.42 % (0.4-2.05); RBC Red Blood Cell Count 2.15 M/uL (3.86-4.86)
[2024-08-19 08:17] LABS: Ferritin 204.7 ng/mL (8-252)
[2024-08-19] MEDS: POTASSIUM PHOS IN 0.9 % NACL 15 MMOL/250 ML BAG IV ONE (09:00)
[2024-08-19] MEDS: PANTOPRAZOLE 40 MG INJ IVP SCH (09:00)
[2024-08-19] MEDS ORDERED: FLU (Fluarix Triv) TS24-25(6MOS UP)/PF 45 MCG/0.5 ML Syringe IM ONE (13:00)
[2024-08-19] MEDS ORDERED: PNEUMOCOCCAL VACCINE 0.5 ML IMVAC ONE (18:00)
[2024-08-19 19:01] LABS: Hematocrit 29.2 % (36.0-45.0)
[2024-08-19] MEDS: POTASSIUM 25 MEQ EFFERV TAB PO ONE (21:07)
[2024-08-20 05:09] LABS: Absolute Basophils 0.1 K/uL (0-0.5); Absolute Lymphocytes (CBC) 1.1 K/uL (0.7-4.9); Absolute Monocytes 0.6 K/uL (0.1-1.3); Absolute Neutrophil 2.5 K/uL (1.8-8.0); Basophils % 1.3 % (0-1.3); Hematocrit 27.1 % (36.0-45.0); Hemoglobin 9.3 g/dL (12.0-15.0); Lymphocytes % 24.7 % (15.3-44.8); MCH 35.2 pg (27.0-35.0); MCHC 34.4 g/dL (32.0-36.0); MCV 102.2 fL (80-100); MPV 7.8 fL (7.6-11.3); Monocytes % 14.1 % (3.3-12.3); Neutrophils % 58.9 % (41.7-73.7); Nucleated Red Blood Cells % 0.7 % (0-0); Platelets 142 thou/uL (152-406); RBC Red Blood Cell Count 2.65 M/uL (3.86-4.86)
[2024-08-20 05:13] LABS: Red Cell Distribution Width 24.1 % (12.1-15.2)
[2024-08-20 05:28] LABS: Albumin 1.6 g/dL (3.4-5.0); Albumin/Globulin Ratio 0.5 (1.1-1.8); Anion Gap 7.9 mEq/L (5.0-15.0); Bilirubin Total 0.9 mg/dL (0.2-1.0); Globulin 3.5 g/dL (2.3-3.5); Magnesium 1.8 mg/dL (1.6-2.4); Phosphorus 3.2 mg/dL (2.5-4.9); Potassium 3.9 mEq/L (3.5-5.1); Protein, Total 5.1 g/dL (6.4-8.2)
[2024-08-20] MEDS: MAGNESIUM SULFATE 1 gm IVPB 1 GM/100 ML BAG IV ONE (06:30)
[2024-08-20 06:53] LABS: Specific Gravity 1.029 (1.005-1.030); Sqamous Epithelial <5 /HPF (None Seen); Urine Bacteria >50 /HPF (<20); Urine Bilirubin 1+ (Negative); Urine Blood Negative (Negative); Urine Clarity Extremely Turbid (Clear); Urine Color Dark-Yellow (Yellow); Urine Culture Reflex Order REFLEXED; Urine Glucose NEGATIVE (Negative); Urine Ketones TRACE (Negative); Urine Microscopic Reflex YN ORDER UMIC; Urine Mucus Slight /HPF (None Seen); Urine Nitrite NEGATIVE (Negative); Urine Protein 1+ (Negative); Urine RBC <5 /HPF (None Seen); Urine Urobilinogen 4+ (Over) (Normal); Urine WBC 20-50 /HPF (<5)
[2024-08-20] MEDS: CEFTRIAXONE 1,000 MG in NA CHLORIDE 0.9% 50 ML IVPB SCH (08:10)
--- NOTE | 2024-08-20 09:33 | P.PN ---
Date of Service: 08/20/24 Subjective: nursing staff reports dark urine yesterday denies any urinary symptoms no obvious bleeding family looking into SNF facilities afebrile ROS: 10 point ROS as noted above, otherwise negative Physical Exam: GEN: Alert, oriented x2, NAD HEENT: Normal conjunctiva, sclera anicteric CV: Regular rate and rhythm, no edema Pulm: Nonlabored respirations on room air, clear bilaterally ABD: soft, nontender, nondistended Neuro: Normal speech, normal affect Problem List: Acute metabolic encephalopathy Alcohol abuse Liver cirrhosis Marijuana use Anemia, unknown etiology Possible UTI Rhabdomyolysis, resolved Hypokalemia, improved Acquired thrombocytopenia Hypotension Acute metabolic encephalopathy Alcohol abuse Liver cirrhosis Marijuana use On admission, presents with confusion, altered mentation. Found down in the bathroom after a welfare check. CT head (08/16): negative for any acute findings CT abdomen (08/17): cirrhotic hepatic morpholgy with sequela of portal hypertension includnig paraesophgageal varices, splenomegaly, and ascites. Alcohol withdrawal seizures suspected Monitor for seizures; Ativan as needed Alcohol and substance cessation advised. continue Multivitamins, folic acid and thiamine CIWA protocol Patient is now awake and interactive. Seems slightly confused, but improved LFTs improved Anemia, unknown etiology unknown etiology, unknown chronicity - pt has not been here before / no prior records and rarely sees a doctor. Does report "a while ago needing blood transfusion" no obvious bleeding noted. denies any abdominal pains. Denies black/tarry stools CT abdomen (08/17): cirrhotic hepatic morpholgy with sequela of portal hypertension including paraesophgageal varices, splenomegaly, and ascites. Focal wall prominence of the cecum and rectum may be due to nondistention, hepatic congestion, or colitis/proctitis s/p 1 uPRBC (08/19). Hgb up to 10.0 post transfusion iron studies: iron 28, tsat% 31% continue PPI Monitor for active bleeding. - no active bleeding hgb stable Possible UTI UA with +LE, WBC, Bacteria concerning for UTI Asymptomatic although did come in with confusion, AMS Denies any urinary symptoms. will empircally cover with rocephin; added 08/20 follow urine culture Rhabdomyolysis, resolved Hypokalemia, improved CK elevated 649 on admission CK level trended down. resolved 08/19. Replace potassium as needed. Acquired thrombocytopenia Related to liver cirrhosis and splenomegaly. Monitor for active bleeding Monitor CBC Avoid anticoagulation Hypotension Monitor BP closely. VTE: SCD Code: Full Dispo: [facility]; pending approval pending Hgb stable, BP improves, urine culture results Time Spent Managing Pts Care (In Minutes): 51
[2024-08-20] MEDS ORDERED: FLU (Fluarix Triv) TS24-25(6MOS UP)/PF 45 MCG/0.5 ML Syringe IM ONE (15:00)
[2024-08-20] MEDS ORDERED: PNEUMOCOCCAL VACCINE 0.5 ML IMVAC ONE (18:00)
[2024-08-20] MEDS: NA CHLORIDE 0.9% 1,000 ML IV SCH (19:20)
[2024-08-20 21:31] VITALS: O2SAT 100
[2024-08-21 05:39] LABS: Hematocrit 26.5 % (36.0-45.0); MCH 34.7 pg (27.0-35.0); MCV 102.2 fL (80-100); MPV 7.6 fL (7.6-11.3); Platelets 137 thou/uL (152-406); Red Cell Distribution Width 24.1 % (12.1-15.2)
[2024-08-21 05:50] LABS: Anion Gap 8.9 mEq/L (5.0-15.0); Magnesium 1.9 mg/dL (1.6-2.4); Potassium 3.9 mEq/L (3.5-5.1)
--- NOTE | 2024-08-21 08:32 | P.PN ---
Date of Service: 08/21/24 Subjective: feeling better today denies any new / worsening problems breathing okay on room air denies any trouble urinating reports drinking alcohol maybe every other day at home , no history of withdrawal/seizure worked with PT in bed yesterday. ROS: 10 point ROS as noted above, otherwise negative Physical Exam: GEN: Alert, oriented x2, NAD HEENT: Normal conjunctiva, sclera anicteric CV: Regular rate and rhythm, no edema Pulm: Nonlabored respirations on room air, clear bilaterally ABD: soft, nontender, nondistended Neuro: Normal speech, normal affect Problem List: Acute metabolic encephalopathy Alcohol use Liver cirrhosis Marijuana use Anemia, unknown etiology UTI Rhabdomyolysis, resolved Hypokalemia, improved Acquired thrombocytopenia Hypotension, resolved Acute metabolic encephalopathy Alcohol use Liver cirrhosis Marijuana use On admission, presents with confusion, altered mentation. Found down in the bathroom after a welfare check. No seizure like activity was ever witnessed, but given h/o cirrhosis, reported alcohol use, and on ground; initial concern for possible withdrawal seizures patient has not had any seizure activity, nor alcohol withdrawal symptoms while hospitalized CT head (08/16): negative for any acute findings CT abdomen (08/17): cirrhotic hepatic morphology with sequela of portal hypertension including paraesophgageal varices, splenomegaly, and ascites. More awake / interactive last 48hrs. Less confused. improving Possibly secondary to UTI Initial UA did not have bacteria, patient was very dehydrated Repeat UA was obtained, patient denied any UTI symptoms, however has been confused Second urine sample with gram-negative rods The patient was improving prior to antibiotic initiation LFTs improved Anemia, unknown etiology unknown etiology, unknown chronicity - pt has not been here before / no prior records and rarely sees a doctor. Does report "a while ago needing blood transfusion" no obvious bleeding noted. denies any abdominal pains. Denies black/tarry stools CT abdomen (08/17): cirrhotic hepatic morpholgy with sequela of portal hypertension including paraesophgageal varices, splenomegaly, and ascites. Focal wall prominence of the cecum and rectum may be due to nondistention, hepatic congestion, or colitis/proctitis s/p 1 uPRBC (08/19). Hgb up to 10.0 post transfusion iron studies: iron 28, tsat% 31% continue PPI no active bleeding noted hgb stable in 9s last 48 hours UTI urine cx (08/20): 4+ GNR Asymptomatic although did come in with confusion, AMS Denies any urinary symptoms. continue empiric rocephin (08/20-) Follow-up culture afebrile, no leukocytosis Rhabdomyolysis, resolved Hypokalemia, improved CK elevated 649 on admission CK level trended down. resolved 08/19. Acquired thrombocytopenia Stable [id number] Related to liver cirrhosis and splenomegaly. Monitor for active bleeding Monitor CBC Hypotension, secondary to hypovolemia and anemia improved after 1uPRBC and stable VTE: SCD Code: Full Dispo: SNF - pending approval pending culture results, SNF approval, hgb remains stable Time Spent Managing Pts Care (In Minutes): 45
[2024-08-21] MEDS: MULTIVITAMIN TAB PO SCH (08:44)
[2024-08-21] MEDS: THIAMINE HCL 100 MG TABLET PO SCH (08:44)
[2024-08-21] MEDS: FOLIC ACID 1 MG TABLET PO SCH (08:44)
[2024-08-21] MEDS: PANTOPRAZOLE 40MG TABLET PO SCH (08:44)
[2024-08-22 07:05] LABS: Hematocrit 27.5 % (36.0-45.0); Hemoglobin 9.3 g/dL (12.0-15.0); MCH 35.1 pg (27.0-35.0); MCHC 33.8 g/dL (32.0-36.0); MCV 103.8 fL (80-100); MPV 8.7 fL (7.6-11.3); Platelets 143 thou/uL (152-406); RBC Red Blood Cell Count 2.65 M/uL (3.86-4.86); Red Cell Distribution Width 24.2 % (12.1-15.2)
[2024-08-22 07:08] LABS: Albumin 1.5 g/dL (3.4-5.0); Anion Gap 7.7 mEq/L (5.0-15.0); Magnesium 1.8 mg/dL (1.6-2.4); Phosphorus 3.8 mg/dL (2.5-4.9); Potassium 3.7 mEq/L (3.5-5.1)
[2024-08-22 08:25] LABS: Anisocytosis 3+; Blood Morphology Comment NOTED (NOT SEEN); Platelet Estimate DECR; White Blood Cell Scan OK (OK)
[2024-08-22] MEDS: MAGNESIUM SULFATE 1 gm IVPB 1 GM/100 ML BAG IV ONE (10:11)
[2024-08-22] MEDS: POTASSIUM 25 MEQ EFFERV TAB PO ONE (10:11)
--- NOTE | 2024-08-22 10:55 | P.PN ---
Date of Service: 08/22/24 Subjective: Feeling better today mentation improved today, oriented x3 today. quicker to respond exercised with PT in bed yesterday Denies n/v/d. Denies urinary symptoms afebrile ROS: 10 point ROS as noted above, otherwise negative Physical Exam: GEN: Alert, oriented x3, NAD, mild confusion HEENT: Normal conjunctiva, sclera anicteric CV: Regular rate and rhythm, no edema Pulm: Nonlabored respirations on room air, clear bilaterally ABD: soft, nontender, nondistended Neuro: Normal speech, normal affect, generalized weakness, slight stiffness in lower extremities Problem List: Acute metabolic encephalopathy Alcohol use Liver cirrhosis Anemia, unknown etiology UTI Rhabdomyolysis, resolved Hypokalemia, improved Acquired thrombocytopenia Hypotension, improved; secondary to hypovolemia and anemia Acute metabolic encephalopathy Alcohol use Liver cirrhosis On admission, presents with confusion, altered mentation. Found down in the bathroom after a welfare check. No seizure like activity was ever witnessed, but given h/o cirrhosis, reported alcohol use, and on ground; initial concern for possible withdrawal seizures patient has not had any seizure activity, nor alcohol withdrawal symptoms while hospitalized CT head (08/16): negative for any acute findings CT abdomen (08/17): cirrhotic hepatic morphology with sequela of portal hypertension including paraesophgageal varices, splenomegaly, and ascites. Possibly secondary to UTI Initial UA did not have bacteria, patient was very dehydrated Repeat UA was obtained, patient denied any UTI symptoms, however has been confused Second urine sample with gram-negative rods The patient was improving prior to antibiotic initiation LFTs improved Anemia, unknown etiology unknown etiology, unknown chronicity - pt has not been here before / no prior records and rarely sees a doctor. Does report "a while ago needing blood transfusion" no obvious bleeding noted. denies any abdominal pains. Denies black/tarry stools CT abdomen (08/17): cirrhotic hepatic morpholgy with sequela of portal hypertension including paraesophgageal varices, splenomegaly, and ascites. Focal wall prominence of the cecum and rectum may be due to nondistention, hepatic congestion, or colitis/proctitis s/p 1 uPRBC (08/19). Hgb up to 10.0 post transfusion patient not eating/drinking much, hemoconcentration iron studies: iron 28, tsat% 31% continue PPI no active bleeding noted hgb stable in 9s last 48 hours UTI urine cx (08/20): E. coli Asymptomatic although did come in with confusion, AMS Denies any urinary symptoms, but has been confused continue rocephin (08/20-) afebrile, no leukocytosis Rhabdomyolysis, resolved Hypokalemia, improved CK elevated 649 on admission CK level trended down. resolved 08/19. Acquired thrombocytopenia Stable [id number] Related to liver cirrhosis and splenomegaly. Monitor for active bleeding Monitor CBC Hypotension, improved; secondary to hypovolemia and anemia improved after 1uPRBC and stable VTE: SCD Code: Full Dispo: SNF - pending approval Pending SNF approval / strength improves Time Spent Managing Pts Care (In Minutes): 45
[2024-08-22] MEDS: NA CHLORIDE 0.9% 1,000 ML IV SCH (22:45)
[2024-08-23] MEDS: ENSURE ENLIVE 237 ML CAN PO SCH (08:00)
[2024-08-23 08:06] LABS: Absolute Eosinophils 0.1 K/uL (0-0.5); Absolute Monocytes 0.6 K/uL (0.1-1.3); Absolute Neutrophil 2.7 K/uL (1.8-8.0); Basophils % 0.9 % (0-1.3); Eosinophils % 1.3 % (0-4.4); Hematocrit 27.1 % (36.0-45.0); Hemoglobin 9.1 g/dL (12.0-15.0); Lymphocytes % 22.9 % (15.3-44.8); MCH 34.5 pg (27.0-35.0); MCHC 33.6 g/dL (32.0-36.0); MCV 102.7 fL (80-100); Monocytes % 14.1 % (3.3-12.3); Neutrophils % 60.8 % (41.7-73.7); Platelets 169 thou/uL (152-406); RBC Red Blood Cell Count 2.64 M/uL (3.86-4.86)
[2024-08-23 08:25] LABS: Albumin 1.4 g/dL (3.4-5.0); Albumin/Globulin Ratio 0.4 (1.1-1.8); Anion Gap 6.5 mEq/L (5.0-15.0); Bilirubin Total 0.6 mg/dL (0.2-1.0); Globulin 3.5 g/dL (2.3-3.5); Magnesium 1.9 mg/dL (1.6-2.4); Potassium 3.5 mEq/L (3.5-5.1); Protein, Total 4.9 g/dL (6.4-8.2)
--- NOTE | 2024-08-23 08:42 | P.PN ---
Date of Service: 08/23/24 Subjective: feeling better today. Mentation improving, still somewhat confused minimal appetite, eating a few bites. But drinking ensure enlive x1-2 yesterday per nursing staff got out of bed and sat in chair yesterday with PT able to ambulate few feet before getting fatigued yesterday ROS: 10 point ROS as noted above, otherwise negative Physical Exam: GEN: Alert, oriented x3, mild confusion CV: Regular rate and rhythm, no edema Pulm: Nonlabored respirations on room air, clear bilaterally ABD: soft, nontender, nondistended Neuro: Normal speech, generalized weakness, slight stiffness in lower extremities Problem List: Acute metabolic encephalopathy Alcohol use Liver cirrhosis Anemia, unknown etiology UTI Rhabdomyolysis, resolved Hypokalemia, improved Acquired thrombocytopenia Hypotension, improved; secondary to hypovolemia and anemia Acute metabolic encephalopathy Alcohol use Liver cirrhosis On admission, presents with confusion, altered mentation. Found down in the bathroom after a welfare check. No seizure like activity was ever witnessed, but given h/o cirrhosis, reported alcohol use, and on ground; initial concern for possible withdrawal seizures patient has not had any seizure activity, nor alcohol withdrawal symptoms while hospitalized CT head (08/16): negative for any acute findings CT abdomen (08/17): cirrhotic hepatic morphology with sequela of portal hypertension including paraesophgageal varices, splenomegaly, and ascites. Possibly secondary to UTI Initial UA did not have bacteria, patient was very dehydrated Repeat UA was obtained, patient denied any UTI symptoms, however has been confused Second urine sample with gram-negative rods The patient was improving prior to antibiotic initiation LFTs improved Anemia, unknown etiology unknown etiology, unknown chronicity - pt has not been here before / no prior records and rarely sees a doctor. Does report "a while ago needing blood transfusion" no obvious bleeding noted. denies any abdominal pains. Denies black/tarry stools CT abdomen (08/17): cirrhotic hepatic morpholgy with sequela of portal hypertension including paraesophgageal varices, splenomegaly, and ascites. Focal wall prominence of the cecum and rectum may be due to nondistention, hepatic congestion, or colitis/proctitis s/p 1 uPRBC (08/19). Hgb up to 10.0 post transfusion patient not eating/drinking much, hemoconcentration iron studies: iron 28, tsat% 31% continue PPI no active bleeding noted hgb stable in 9s last 48 hours UTI urine cx (08/20): E. coli Asymptomatic although did come in with confusion, AMS Denies any urinary symptoms, but has been confused continue rocephin (08/20-) afebrile, no leukocytosis Rhabdomyolysis, resolved Hypokalemia, improved CK elevated 649 on admission CK level trended down. resolved 08/19. Acquired thrombocytopenia Stable [id number] Related to liver cirrhosis and splenomegaly. Monitor for active bleeding Monitor CBC Hypotension, improved; secondary to hypovolemia and anemia improved after 1uPRBC and stable VTE: SCD Code: Full Dispo: SNF - pending approval Pending PO intake improves Time Spent Managing Pts Care (In Minutes): 45
[2024-08-23] MEDS: POTASSIUM CL SA 10 MEQ TAB PO ONE (11:21)
[2024-08-24 05:27] LABS: Hemoglobin 9.6 g/dL (12.0-15.0); MCH 35.2 pg (27.0-35.0); MCHC 34.5 g/dL (32.0-36.0); MCV 101.9 fL (80-100); Platelets 186 thou/uL (152-406); RBC Red Blood Cell Count 2.74 M/uL (3.86-4.86); Red Cell Distribution Width 22.3 % (12.1-15.2)
[2024-08-24 05:47] LABS: Albumin 1.5 g/dL (3.4-5.0); Albumin/Globulin Ratio 0.4 (1.1-1.8); Anion Gap 8.6 mEq/L (5.0-15.0); Bilirubin Total 0.8 mg/dL (0.2-1.0); Globulin 3.7 g/dL (2.3-3.5); Magnesium 1.8 mg/dL (1.6-2.4); Phosphorus 3.5 mg/dL (2.5-4.9); Potassium 3.6 mEq/L (3.5-5.1); Protein, Total 5.2 g/dL (6.4-8.2)
[2024-08-24] MEDS: POTASSIUM CL SA 10 MEQ TAB PO ONE (08:32)
--- NOTE | 2024-08-24 08:35 | P.DS ---
Admission Date: 08/17/24 Discharge Date: 08/24/24 Disposition: TRANSFER TO SNF - REHAB Reason for Admission: AMS Brief History of Present Illness: 68yo F, PMH: alcohol abuse, liver cirrhosis Patient was brought to ER with altered mental status. Patient is altered and confused at the time of admission. Hence most of the history is obtained from the chart review and also talking to the ER physician and family member at the bedside. Patient was found down in the bathroom after a welfare check. Patient lives alone. She has a history of alcohol abuse . Patient denies any chest pain or shortness of breath. No fever or chills. Denies any trauma. No history of head injury. Patient was assessed in the ER and was admitted for further management of rhabdomyolysis and altered mental status Hospital Course: Problem List: Acute metabolic encephalopathy, improved Alcohol use Liver cirrhosis Anemia, unknown etiology UTI Rhabdomyolysis, resolved Hypokalemia, improved Acquired thrombocytopenia Hypotension, improved; secondary to hypovolemia and anemia Physician discharge instructions: Patient presented with confusion, altered mentation. Patient was reportedly found down laying on the bathroom floor for an unknown amount of time after neighbors were concerned and called in a welfare check. Unclear exact etiology. Although no seizure activity was witnessed, initial concern was for possible alcoholic withdrawal / seizure given her reported alcohol use at home, however patient has not had any seizure activity, nor alcohol withdrawal symptoms while hospitalized. Tox screen was positive for THC. Serum alcohol < [address] head was negative for any acute findings. CT abdomen noted cirrhotic liver with sequela of portal hypertension including paraesophageal varices, splenomegaly, and ascites. Patient denied use of THC/Marijuana. Tox screen was positive for THC, raising the possibility of marijuana laced with an unknown substance could be a culprit. Her urine was checked in ED and was without bacteria however she was very dehydrated and a repeat UA done 08/20 was positive for bacteria. She did not report any specific urinary complaints/symptoms, however she was still confused. This episode could be explained by a UTI. She already had some mild improvement in her symptoms prior to antibiotic initiation, and continued to improve. Her urine culture ended up growing near sanchez-sensitive E. coli. (resistant to ampicillin, ancef, unasyn; intermediate to augmentin, otherwise sensitive). She completed a total 5 day course of rocephin prior to discharge (08/20-08/24) She also received IV fluids throughout hospitalization in addition to thiamine, folic acid given concern for alcohol withdrawals/seizures. She was evaluated by PT and was found to be quite debilitated, walking a few feet, when previously was ambulating and independent. Patient was feeling better, mentation improved, strength improving, and was deemed stable for discharge to [facility] to continue working with physical therapy and on her appetite. Her oral intake slowly improved and nursing noted she would eat more withe encouragement and assistance with prepping / cutting up food. She did do well drinking ensure. During her hospitalization, she was found to be severely anemic (acute on chronic) with hemoglobin on 7.1, with initial hgb in ED: 9.9. There was no evidence of bleeding and she denied any recent black/tarry/bloody stools/emesis/urine. She received 1 unit of blood transfusion on 08/19, repeat hgb: 10.0, and remained stable in 9s Hgb: 9.6 on day of discharge. She was started on protonix, given anemia and CT noting cirrhotic hepatic morphology with sequela of portal hypertension including paraesophageal varices, small ascites, and splenomegaly. Ammonia on admission was 30. Medications: thiamine/folic acid ensure protonix Follow up: PCP 3-5 days Please call to schedule / confirm appointments Physical Exam: GEN: Alert, oriented x3, NAD CV: Regular rate and rhythm, no edema Pulm: Nonlabored respirations on room air, clear bilaterally ABD: soft, nontender, nondistended Neuro: Normal speech, generalized weakness Vital Signs/Physical Exam: Temp Pulse Resp BP Pulse Ox 96.9 F 88 14 112/65 94 08/24/24 04:00 08/24/24 04:00 08/24/24 04:00 08/24/24 04:00 08/24/24 04:00 Laboratory Data at Discharge: WBC 4.60 thou/uL (4.3-10.9) 08/24/24 05:08 Hgb 9.6 g/dL (12.0-15.0) L 08/24/24 05:08 Hct 28.0 % (36.0-45.0) L 08/24/24 05:08 Plt Count 186 thou/uL (152-406) 08/24/24 05:08 PT 15.7 SECONDS (9.4-12.5) H 08/16/24 22:35 INR 1.42 08/16/24 22:35 Sodium 134 mEq/L (136-145) L 08/24/24 05:08 Potassium 3.6 mEq/L (3.5-5.1) 08/24/24 05:08 BUN 8 mg/dL (7-18) 08/24/24 05:08 Creatinine 0.40 mg/dL (0.55-1.02) L 08/24/24 05:08 Glucose 103 mg/dL (74-106) 08/24/24 05:08 Phosphorus 3.5 mg/dL (2.5-4.9) 08/24/24 05:08 Magnesium 1.8 mg/dL (1.6-2.4) 08/24/24 05:08 Total Bilirubin 0.8 mg/dL (0.2-1.0) 08/24/24 05:08 AST 21 U/L (15-37) 08/24/24 05:08 ALT 16 U/L (13-56) 08/24/24 05:08 Alkaline Phosphatase 82 U/L (45-117) 08/24/24 05:08 Home Medications: Ensure Enlive 237 ml PO BIDWM #60 can 08/24/24 Multivit,Ther Iron,Ca,FA & Min [Centrum Tablet*] 1 tab PO DAILY #0 tab 08/24/24 Pantoprazole [Protonix Tab*] 40 mg PO BIDAC #0 tab 08/24/24 Thiamine HCl [Vitamin B-1*] 100 mg PO DAILY #0 08/24/24 New Medications: Multivit,Ther Iron,Ca,FA & Min [Centrum Tablet*] 1 tab PO DAILY #0 tab Ensure Enlive 237 ml PO BIDWM #60 can Pantoprazole [Protonix Tab*] 40 mg PO BIDAC #0 tab Thiamine HCl [Vitamin B-1*] 100 mg PO DAILY #0 Physician Discharge Instructions: Physician discharge instructions: Patient presented with confusion, altered mentation. Patient was reportedly found down laying on the bathroom floor for an unknown amount of time after neighbors were concerned and called in a welfare check. Unclear exact etiology. Although no seizure activity was witnessed, initial concern was for possible alcoholic withdrawal / seizure given her reported alcohol use at home, however patient has not had any seizure activity, nor alcohol withdrawal symptoms while hospitalized. Tox screen was positive for THC. Serum alcohol < [address] head was negative for any acute findings. CT abdomen noted cirrhotic liver with sequela of portal hypertension including paraesophageal varices, splenomegaly, and ascites. Patient denied use of THC/Marijuana. Tox screen was positive for THC, raising the possibility of marijuana laced with an unknown substance could be a culprit. Her urine was checked in ED and was without bacteria however she was very de hydrated and a repeat UA done 08/20 was positive for bacteria. She did not report any specific urinary complaints/symptoms, however she was still confused. This episode could be explained by a UTI. She already had some mild improvement in her symptoms prior to antibiotic initiation, and continued to improve. Her urine culture ended up growing near sanchez-sensitive E. coli. (resistant to ampicillin, ancef, unasyn; intermediate to augmentin, otherwise sensitive). She completed a total 5 day course of rocephin prior to discharge (08/20-08/24) She also received IV fluids throughout hospitalization in addition to thiamine, folic acid given concern for alcohol withdrawals/seizures. She was evaluated by PT and was found to be quite debilitated, walking a few feet, when previously was ambulating and independent. Patient was feeling better, mentation improved, strength improving, and was deemed stable for discharge to [facility] to continue working with physical therapy and on her appetite. Her oral intake slowly improved and nursing noted she would eat more withe encouragement and assistance with prepping / cutting up food. She did do well drinking ensure. During her hospitalization, she was found to be severely anemic (acute on chronic) with hemoglobin on 7.1, with initial hgb in ED: 9.9. There was no evidence of bleeding and she denied any recent black/tarry/bloody stools /emesis/urine. She received 1 unit of blood transfusion on 08/19, repeat hgb: 10.0, and remained stable in 9s Hgb: 9.6 on day of discharge. She was started on protonix, given anemia and CT noting cirrhotic hepatic morphology with sequela of portal hypertension including paraesophageal varices, small ascites, and splenomegaly. Ammonia on admission was 30. Medications: thiamine/folic acid ensure protonix Follow up: PCP 3-5 days Please call to schedule / confirm appointments Followup: NONE,NONE [Primary Care Provider] - Time spent managing pt's care (in minutes): 45
[2024-08-24 08:43] VITALS: BP 129/71; TEMP 97.4
[2024-08-24] MEDS: MAGNESIUM SULFATE 1 gm IVPB 1 GM/100 ML BAG IV ONE (09:15)
== END 2024-08-24 11:30 | DRG 557 ==
LOC: ER 22:02 → ERHOLD 08-17 01:03 → 2ND 08-17 01:48
PROVIDERS: ADMIT Family Medicine; ATTEND Hospitalist
PROC: 30233N1 Transfusion of Nonautologous Red Blood Cells into Peripheral Vein, Percutaneous Approach (ICD-10-PCS; principal; 2024-08-19)
DX: M62.82 Rhabdomyolysis (principal); G93.41 Metabolic encephalopathy; N39.0 Urinary tract infection, site not specified; K76.6 Portal hypertension; I85.10 Secondary esophageal varices without bleeding; R18.8 Other ascites; Z16.11 Resistance to penicillins; E87.6 Hypokalemia; F10.10 Alcohol abuse, uncomplicated; F12.10 Cannabis abuse, uncomplicated; F19.10 Other psychoactive substance abuse, uncomplicated; D69.59 Other secondary thrombocytopenia; K74.60 Unspecified cirrhosis of liver; D63.8 Anemia in other chronic diseases classified elsewhere; I95.9 Hypotension, unspecified; E86.0 Dehydration; B96.20 Unspecified Escherichia coli [E. coli] as the cause of diseases classified elsewhere; F17.210 Nicotine dependence, cigarettes, uncomplicated; R16.1 Splenomegaly, not elsewhere classified; R56.9 Unspecified convulsions; Z60.2 Problems related to living alone; Y90.0 Blood alcohol level of less than 20 mg/100 ml
CPT/HCPCS: 36415; 36430; 51702; 70450; 71045; 71260; 72125; 74177; 80048; 80053; 80069; 80076; 80307; 81001; 82077; 82140; 82550; 82607; 82728; 83010; 83540; 83615; 83735; 83880; 84100; 84132; 84466; 84484; 85014; 85018; 85025; 85027; 85044; 85610; 86850; 86900; 86901; 86920; 87077; 87086; 87088; 87186; 93005; 96365; 96366; 97110; 97116; 97161; 97530; 99285; A4216; J0696; J2470; J3411; J3475; J7030; J7050; P9016; Q9967